=== PATIENT | male | born 1990 | race Hispanic/Latino ===

== ENCOUNTER 2019-10-04 04:06 | Emergency (ER) | payer OTHER ==
--- NOTE | 2019-10-04 04:37 | ER ---
Nurse's Notes [facility] Name: Lux Reza Age: 29 yrs Sex: Male : 1990 Arrival Date: 10/04/2019 Time: 04:07 Bed 5 Private MD: Diagnosis: Chronic pain due to trauma;Lateral epicondylitis, right elbow Presentation: 10/03 04:17 Chief complaint: Patient states: Pain in arms from elbow down to hands. Reports burning tl2 and tingling sensation. Has been going on for a couple months but not getting better, pt works in construction and uses heavy machinery. Pt is unable to sleep due to pain. Coronavirus screen: Proceed with normal triage. Patient denies a cough. Patient denies shortness of breath or difficulty breathing. Patient denies measured and/or subjective temperature greater than 100.4F prior to today's visit. Patient denies travel on a cruise ship or to a country the [facility] currently lists as an affected area. Patient denies contact with known and/or suspected case of COVID-19. Ebola Screen: No symptoms or risks identified at this time. Initial Sepsis Screen: Does the patient meet any 2 criteria? No. Patient's initial sepsis screen is negative. Does the patient have a suspected source of infection? No. Patient's initial sepsis screen is negative. Risk Assessment: Do you want to hurt yourself or someone else? Patient reports no desire to harm self or others. Onset of symptoms was July 2019. 04:17 Method Of Arrival: Ambulatory tl2 04:17 Acuity: ADRIANO 4 tl2 Triage Assessment: 04:20 General: Appears in no apparent distress. uncomfortable, Behavior is calm, cooperative, tl2 appropriate for age. Pain: Complains of pain in right elbow Pain radiates to right hand Pain currently is 10 out of 10 on a pain scale. Quality of pain is described as burning, tingling, Is episodic, chronic. Neuro: Level of Consciousness is awake, alert, obeys commands, Oriented to person, place, time, situation. Cardiovascular: Denies chest pain. Respiratory: Airway is patent Respiratory effort is even, unlabored, Respiratory pattern is regular, symmetrical. GI: No signs and/or symptoms were reported involving the gastrointestinal system. Derm: Skin is pink, warm \T\ dry. Musculoskeletal: Circulation, motion, and sensation intact. Range of motion: intact in all extremities. 04:20 Musculoskeletal:. tl2 Historical: - Allergies: 04:20 No Known Allergies; tl2 - Home Meds: 04:20 None [Active]; tl2 - PMHx: 04:20 None; tl2 - PSHx: 04:20 None; tl2 - Immunization history:: Adult Immunizations up to date, Last tetanus immunization: up to date. - Social history:: Smoking status: Patient denies any tobacco usage or history of. Screenin:22 Abuse screen: Denies threats or abuse. Nutritional screening: No deficits noted. tl2 Tuberculosis screening: No symptoms or risk factors identified. Fall Risk None identified. Vital Signs: 04:17 BP 133 / 93; Pulse 82; Resp 18; Temp 97.7(O); Pulse Ox 100% on R/A; Weight 113.4 kg; tl2 Height 5 ft. 7 in. (170.18 cm); Pain 10/10; 04:17 Body Mass Index 39.16 (113.40 kg, 170.18 cm) tl2 ED Course: 04:07 Patient arrived in ED. ds1 04:17 Melina Carter, RN is Primary Nurse. tl2 04:19 Triage completed. tl2 04:20 Arm band placed on right wrist. tl2 04:21 Joby Jones MD is Attending Physician. tw4 04:22 Patient has correct armband on for positive identification. Bed in low position. Call tl2 light in reach. Side rails up X 1. Adult w/ patient. 04:29 No provider procedures requiring assistance completed. Patient did not have IV access rv during this emergency room visit. Administered Medications: No medications were administered Outcome: 04:29 Medical screen evaluation completed per provider. Patient declined treatment. rv 04:29 Condition: unchanged 04:30 Discharge instructions given to patient. rv 04:36 Discharge ordered by . tw4 04:38 Patient left the ED. rv Signatures: Cyn Buchanan ds1 Melina Carter, BRIANA RN tl2 Joby Jones MD MD tw4 Niko Ledesma RN RN rv
--- NOTE | 2019-10-04 04:37 | EDPHYS ---
Physician Documentation [facility] Name: Lux Reza Age: 29 yrs Sex: Male : 1990 Arrival Date: 10/04/2019 Time: 04:07 Bed 5 Private MD: ED Physician Joby Jones HPI: 10/03 04:31 This 29 yrs old Male presents to ER via Ambulatory with complaints of R Arm tw4 Pain. 04:31 The patient or guardian complains of pain, that is chronic. The complaints affect the tw4 right elbow. Context: The problem was sustained at work. Onset: The symptoms/episode began/occurred 1 month(s) ago. Treatment prior to arrival includes: no previous treatment. Modifying factors: The symptoms are alleviated by remaining still, the symptoms are aggravated by lifting weight, bending arm. Associated signs and symptoms: The patient has no apparent associated signs or symptoms. The patient has not experienced similar symptoms in the past. Historical: - Allergies: 04:20 No Known Allergies; tl2 - Home Meds: 04:20 None [Active]; tl2 - PMHx: 04:20 None; tl2 - PSHx: 04:20 None; tl2 - Immunization history:: Adult Immunizations up to date, Last tetanus immunization: up to date. - Social history:: Smoking status: Patient denies any tobacco usage or history of. ROS: 04:31 Constitutional: Negative for fever, chills, and weight loss, Eyes: Negative for injury, tw4 pain, redness, and discharge, Cardiovascular: Negative for chest pain, palpitations, and edema, Respiratory: Negative for shortness of breath, cough, wheezing, and pleuritic chest pain, Abdomen/GI: Negative for abdominal pain, nausea, vomiting, diarrhea, and constipation, Skin: Negative for injury, rash, and discoloration, Neuro: Negative for headache, weakness, numbness, tingling, and seizure. 04:31 MS/extremity: Positive for pain, tenderness. Exam: 04:31 Constitutional: This is a well developed, well nourished patient who is awake, alert, tw4 and in no acute distress. Head/Face: Normocephalic, atraumatic. Neck: Trachea midline, no thyromegaly or masses palpated, and no cervical lymphadenopathy. Supple, full range of motion without nuchal rigidity, or vertebral point tenderness. No Meningismus. Chest/axilla: Normal chest wall appearance and motion. Nontender with no deformity. No lesions are appreciated. Cardiovascular: Regular rate and rhythm with a normal S1 and S2. No gallops, murmurs, or rubs. Normal PMI, no JVD. No pulse deficits. Respiratory: Lungs have equal breath sounds bilaterally, clear to auscultation and percussion. No rales, rhonchi or wheezes noted. No increased work of breathing, no retractions or nasal flaring. Abdomen/GI: Soft, non-tender, with normal bowel sounds. No distension or tympany. No guarding or rebound. No evidence of tenderness throughout. Neuro: Awake and alert, GCS 15, oriented to person, place, time, and situation. Cranial nerves II-XII grossly intact. Motor strength 5/5 in all extremities. Sensory grossly intact. Cerebellar exam normal. Normal gait. 04:31 Musculoskeletal/extremity: Extremities: noted in the right elbow: ROM: limited active range of motion, limited passive range of motion, Circulation is intact in all extremities. Vital Signs: 04:17 BP 133 / 93; Pulse 82; Resp 18; Temp 97.7(O); Pulse Ox 100% on R/A; Weight 113.4 kg; tl2 Height 5 ft. 7 in. (170.18 cm); Pain 10/10; 04:17 Body Mass Index 39.16 (113.40 kg, 170.18 cm) tl2 MDM: 04:21 Patient medically screened. 4 04:36 Data reviewed: vital signs, nurses notes. Medical screen evaluation completed. [place] [id number] emergency medical condition absent. Special discussion: I discussed with the patient/guardian in detail that at this point there is no indication for admission to the hospital. It is understood, however, that if the symptoms persist or worsen the patient needs to return immediately for re-evaluation. 04:37 ED course: Pt has had pain in right elbow for one month. States repetitive injury at 4 work. Emergent medical condition absent. Administered Medications: No medications were administered Disposition: 04:37 [facility]. [facility] Disposition: 10/04/19 04:36 Discharged to Home. Impression: Chronic pain due to trauma, Lateral epicondylitis, right elbow. - Condition is Stable. - Medication Reconciliation Form, Thank You Letter, Antibiotic Education, Prescription Opioid Use form. - Follow up: Private Physician; When: Upon discharge from the Emergency Department; Reason: Recheck today's complaints, Continuance of care, Re-evaluation by your physician. - Problem is new. - Symptoms have improved. Signatures: Melina Carter, RN RN tl2 Joby Jones MD MD tw4 Niko Ledesma RN RN rv Corrections: (The following items were deleted from the chart) 04:38 04:36 10/04/2019 04:36 Discharged to Home. Impression: Chronic pain due to trauma; rv Lateral epicondylitis, right elbow. Condition is Stable. Forms are Medication Reconciliation Form, Thank You Letter, Antibiotic Education, Prescription Opioid Use. Follow up: Private Physician; When: Upon discharge from the Emergency Department; Reason: Recheck today's complaints, Continuance of care, Re-evaluation by your physician. Problem is new. Symptoms have improved. tw4
[2019-10-04 04:43] VITALS: BP 133/93; TEMP 97.7; O2SAT 100
== END 2019-10-04 04:38 | disposition home or self-care (01) ==
LOC: ER 04:06
DX: M77.11 Lateral epicondylitis, right elbow (principal); G89.21 Chronic pain due to trauma; X58.XXXA Exposure to other specified factors, initial encounter; Y93.H3 Activity, building and construction; Y92.69 Other specified industrial and construction area as the place of occurrence of the external cause; Y99.0 Civilian activity done for income or pay
CPT/HCPCS: 99281

== ENCOUNTER 2022-02-13 17:28 | Emergency (ER) | payer SELFPAY ==
--- OUTSIDE RECORDS SUMMARY | 2022-02-13 17:32 | XMS REPORT | Continuity of Care Document ---
:1990 Author Organization [facility] t Address [address] [place] [address] Care Team Providers Name Role Phone Unavailable Unavailable Unavailable Payers Payer Name Policy Type Policy Number Effective Date Expiration Date S ource Problems This patient has no known problems. Allergies, Adverse Reactions, Alerts Allergy Allergy Status Severity Reaction(s) Onset Inactive Treating Comm ents Source Name Type Date Date Clinician No Known DA Active [facility] All[facility]ie 06-24 [facility] 00:00: e 00 [facility] Medications This patient has no known medications. Procedures This patient has no known procedures. Encounters Start End Encounter Admission Attending Care Care Encounter Source Date/Time Date/Time Type Type Clinicians Facility Department ID 2017-07-30 2017-07-30 Outpatient [facility] [id number] [address] [place] [address] 00:00:00 00:00:00 [facility] Results Test Description Test Time Test Comments Results Result Comments Source STREPTOCOCCUS PCR SCREEN 2019-02-15 05:44:00 Test Item Value Reference Range Interpretation Comme nts STREPTOCOCCUS DYSGALACTIAE (test code = STREPGC) NEGATIVE FOR G/C N EGATIVE STREPA MOLECULAR (test code = STREPAMOL) NEGATIVE FOR GRP A NEGATIV E - XR CHEST 2 [id number] 09:27:00 Name: RYANNE GROSS [facility] : 1990 Age/S:28 /M [address] [facility] Unit#:[id number] [place]: [place] [address] Phys: Molly Peters MD Dis Date: PHONE #: [phone] Status: REG ER FAX #: [phone] Exam Date: 02/14/2019 Reason: productive cough EXAMS: CPT CODE: [id number] XR CHEST 2 V [id number] HISTORY: Productive cough. COMPARISON: Noneavailable. AP and lateral view of the chest: No acute infiltrates, effusion or congestion. Cardiac and the mediastinal silhouette are normal. IMPRESSION: No acute infiltrates, effusion or congestion. at 0927 Reported and signed by: Tyler Amador M.D. CC: Molly Peters MD Technologist: JAYLYN CONCEPCION, RT(R),CT Trnscrpt Data: 02/14/2019 (926) [email or web address] Orig Print D/T: S: 02/14/2019 (0151) PAGE 1 Signed Report
[2022-02-13] MEDS ORDERED: HYDROCODONE/APAP 10/325 TAB ONE (19:11)
--- NOTE | 2022-02-13 19:50 | EDPHYS ---
Physician Documentation [facility] Name: Lux Reza Age: 31 yrs Sex: Male : 1990 Arrival Date: 02/13/2022 Time: 17:31 Bed 9 Private MD: ED Physician Drew Pitts HPI: 02/13 19:11 This 31 yrs old Male presents to ER via Ambulatory with complaints of Cough, jl9 Congestion.. 19:11 The patient or guardian reports cough, described as moderate, hoarse voice. Onset: The jl9 symptoms/episode began/occurred 1 week(s) ago. Modifying factors: The symptoms are alleviated by nothing, the symptoms are aggravated by nothing. Associated signs and symptoms: Pertinent positives: sore throat, Pertinent negatives:. Historical: - Allergies: 17:56 No Known Allergies; vg1 - Home Meds: 17:56 None [Active]; vg1 - PMHx: 17:56 None; vg1 - PSHx: 17:56 None; vg1 - Immunization history:: Client reports having NOT received the Covid vaccine. - Social history:: Smoking status: Patient denies any tobacco usage or history of. ROS: 19:11 Constitutional: Negative for fever, chills, and weight loss, Eyes: Negative for injury, jl9 pain, redness, and discharge, ENT: Negative for injury, pain, and discharge, Neck: Negative for injury, pain, and swelling, Cardiovascular: Negative for chest pain, palpitations, and edema. 19:11 Abdomen/GI: Negative for abdominal pain, nausea, vomiting, diarrhea, and constipation, Back: Negative for injury and pain, : Negative for injury, bleeding, discharge, and swelling, MS/Extremity: Negative for injury and deformity, Skin: Negative for injury, rash, and discoloration, Neuro: Negative for headache, weakness, numbness, tingling, and seizure, Psych: Negative for depression, anxiety, suicide ideation, homicidal ideation, and hallucinations, Allergy/Immunology: Negative for hives, rash, and allergies, Endocrine: Negative for neck swelling, polydipsia, polyuria, polyphagia, and marked weight changes, Hematologic/Lymphatic: Negative for swollen nodes, abnormal bleeding, and unusual bruising. 19:11 Respiratory: Positive for cough. Exam: 19:12 Constitutional: This is a well developed, well nourished patient who is awake, alert, jl9 and in no acute distress. Head/Face: Normocephalic, atraumatic. Eyes: Pupils equal round and reactive to light, extra-ocular motions intact. Lids and lashes normal. Conjunctiva and sclera are non-icteric and not injected. Cornea within normal limits. Periorbital areas with no swelling, redness, or edema. ENT: Mucous membranes moist. Neck: Trachea midline, no thyromegaly or masses palpated, and no cervical lymphadenopathy. Supple, full range of motion without nuchal rigidity, or vertebral point tenderness. No Meningismus. Chest/axilla: Normal chest wall appearance and motion. Nontender with no deformity. No lesions are appreciated. Cardiovascular: Regular rate and rhythm with a normal S1 and S2. No gallops, murmurs, or rubs. Normal PMI, no JVD. No pulse deficits. Respiratory: Lungs have equal breath sounds bilaterally, clear to auscultation and percussion. No rales, rhonchi or wheezes noted. No increased work of breathing, no retractions or nasal flaring. Abdomen/GI: Soft, non-tender, with normal bowel sounds. No distension or tympany. No guarding or rebound. No evidence of tenderness throughout. Back: No spinal tenderness. No costovertebral tenderness. Full range of motion. Skin: Warm, dry with normal turgor. Normal color with no rashes, no lesions, and no evidence of cellulitis. MS/ Extremity: Pulses equal, no cyanosis. Neurovascular intact. Full, normal range of motion. Neuro: Awake and alert, GCS 15, oriented to person, place, time, and situation. Cranial nerves II-XII grossly intact. Motor strength 5/5 in all extremities. Sensory grossly intact. Cerebellar exam normal. Normal gait. Psych: Awake, alert, with orientation to person, place and time. Behavior, mood, and affect are within normal limits. Vital Signs: 17:54 BP 130 / 82; Pulse 100; Resp 17; Temp 98.8(O); Pulse Ox 99% ; Weight 127.01 kg; Height vg1 5 ft. 6 in. (167.64 cm); Pain 7/10; 19:00 BP 132 / 80; Pulse 98; Resp 18; Pulse Ox 99% on R/A; kr3 20:05 BP 140 / 82; Pulse 88; Resp 18; Pulse Ox 100% on R/A; kr3 17:54 Body Mass Index 45.19 (127.01 kg, 167.64 cm) vg1 MDM: 18:02 Patient medically screened. jl9 19:49 Data reviewed: vital signs, nurses notes. Counseling: I had a detailed discussion with jl9 the patient and/or guardian regarding: the historical points, exam findings, and any diagnostic results supporting the discharge/admit diagnosis, lab results, the need for outpatient follow up, to return to the emergency department if symptoms worsen or persist or if there are any questions or concerns that arise at home. 02/13 17:40 Order name: Flu; Complete Time: 19:09 jl9 02/13 17:40 Order name: SARS-COV-2 RT PCR (Document "Date of Onset" if Symptomatic); Complete Time: jl9 19:46 Administered Medications: 19:15 Drug: [place] (HYDROcodone-acetaminophen) 10 mg-325 mg 1 tabs Route: PO; kr3 20:04 Follow up: Response: No adverse reaction; RASS: Alert and Calm (0) kr3 Disposition Summary: 02/13/22 19:49 Discharge Ordered Location: Home jl9 Condition: Stable jl9 Diagnosis - Acute upper respiratory infection, unspecified jl9 Followup: jl9 - With: Private Physician - When: 1 - 2 days - Reason: Recheck today's complaints, Continuance of care, Re-evaluation by your physician Discharge Instructions: - Discharge Summary Sheet jl9 - Upper Respiratory Infection, Adult jl9 Forms: - Medication Reconciliation Form jl9 - Thank You Letter jl9 - Antibiotic Education jl9 - Prescription Opioid Use jl9 - Work release form kr3 Prescriptions: - albuterol sulfate 90 mcg/actuation Inhalation HFA aerosol inhaler - inhale 2 puff by INHALATION route every 4 hours As needed; 18 gram; Refills: 0, jl9 Product Selection Permitted - azithromycin 250 mg Oral tablet - take 2 tablet by ORAL route once daily for 1 day then 1 tablet (250 mg) by oral jl9 route once daily for 4 days; 6 tablet; Refills: 0, Product Selection Permitted - Medrol (Damián) 4 mg Oral Tablets, Dose Pack - take 1 tablet by ORAL route as directed - follow package instructions; 1 jl9 packet; Refills: 0, Product Selection Permitted Addendum: 02/16/2022 07:04 Co-signature as Attending Physician, Drew Pitts MD. r n Signatures: Dispatcher [employer] EDMS Drew Pitts MD MD rn Garcia, Denia RN RN vg1 Kyle Portillo jl9 Liseth Campoverde RN RN kr3 Corrections: (The following items were deleted from the chart) 02/13 19:42 19:12 Constitutional: This is a well developed, well nourished patient who is awake, jl9 alert, and in no acute distress. Head/Face: Normocephalic, atraumatic. Eyes: Pupils equal round and reactive to light, extra-ocular motions intact. Lids and lashes normal. Conjunctiva and sclera are non-icteric and not injected. Cornea within normal limits. Periorbital areas with no swelling, redness, or edema. ENT: Mucous membranes moist. Neck: Trachea midline, no thyromegaly or masses palpated, and no cervical lymphadenopathy. Supple, full range of motion without nuchal rigidity, or vertebral point tenderness. No Meningismus. Chest/axilla: Normal chest wall appearance and motion. Nontender with no deformity. No lesions are appreciated. Cardiovascular: Regular rate and rhythm with a normal S1 and S2. No gallops, murmurs, or rubs. Normal PMI, no JVD. No pulse deficits. Respiratory: Lungs have equal breath sounds bilaterally, clear to auscultation and percussion. No rales, rhonchi or wheezes noted. No increased work of breathing, no retractions or nasal flaring. Abdomen/GI: Soft, non-tender, with normal bowel sounds. No distension or tympany. No guarding or rebound. No evidence of tenderness throughout. Back: No spinal tenderness. No costovertebral tenderness. Full range of motion. Skin: Warm, dry with normal turgor. Normal color with no rashes, no lesions, and no evidence of cellulitis. MS/ Extremity: Pulses equal, no cyanosis. Neurovascular intact. Full, normal range of motion. Neuro: Awake and alert, GCS 15, oriented to person, place, time, and situation. Cranial nerves II-XII grossly intact. Motor strength 5/5 in all extremities. Sensory grossly intact. Cerebellar exam normal. Normal gait. Psych: Awake, alert, with orientation to person, place and time. Behavior, mood, and affect are within normal limits. jl9
--- NOTE | 2022-02-13 19:50 | ER ---
Nurse's Notes [facility] Name: Lux Reza Age: 31 yrs Sex: Male : 1990 Arrival Date: 02/13/2022 Time: 17:31 Bed 9 Private MD: Diagnosis: Acute upper respiratory infection, unspecified Presentation: 02/13 17:54 Chief complaint: Patient states: cough/congestion, body aches, chills, and sore throat vg1 since Sunday. Also states nausea, denies V/D. Stated has been taking Robitussin, Vitamin C, and Theraflu. Coronavirus screen: Vaccine status: Patient reports being unvaccinated. Client denies travel out of the [place] in the last 14 days. Ebola Screen: Patient negative for fever greater than or equal to 101.5 degrees Fahrenheit, and additional compatible Ebola Virus Disease symptoms Patient denies exposure to infectious person. Initial Sepsis Screen: Does the patient meet any 2 criteria? HR > 90 bpm. Does the patient have a suspected source of infection? No. Patient's initial sepsis screen is negative. Risk Assessment: Do you want to hurt yourself or someone else? Patient reports no desire to harm self or others. Onset of symptoms was February 07, 2022. 17:54 Method Of Arrival: Ambulatory vg1 17:54 Acuity: ADRIANO 4 vg1 Triage Assessment: 17:56 General: Appears uncomfortable, Behavior is calm, cooperative. Pain: Complains of pain vg1 in generalize body Pain currently is 7 out of 10 on a pain scale. Pain began x 1 week. Respiratory: Reports cough that is Airway is patent Respiratory effort is even, unlabored. 20:05 Respiratory: Breath sounds are clear bilaterally. kr3 Historical: - Allergies: 17:56 No Known Allergies; vg1 - Home Meds: 17:56 None [Active]; vg1 - PMHx: 17:56 None; vg1 - PSHx: 17:56 None; vg1 - Immunization history:: Client reports having NOT received the Covid vaccine. - Social history:: Smoking status: Patient denies any tobacco usage or history of. Screenin:45 Abuse screen: Denies threats or abuse. Nutritional screening: No deficits noted. kr3 Tuberculosis screening: No symptoms or risk factors identified. Fall Risk None identified. Assessment: 19:00 Reassessment: No changes from previously documented assessment. Patient and/or family kr3 updated on plan of care and expected duration. Pain level reassessed. Patient is alert, oriented x 3, equal unlabored respirations, skin warm/dry/pink. Cardiovascular: Patient's skin is warm and dry. Respiratory: Airway is patent Respiratory effort is even, unlabored, Respiratory pattern is regular, symmetrical. Vital Signs: 17:54 BP 130 / 82; Pulse 100; Resp 17; Temp 98.8(O); Pulse Ox 99% ; Weight 127.01 kg; Height vg1 5 ft. 6 in. (167.64 cm); Pain 7/10; 19:00 BP 132 / 80; Pulse 98; Resp 18; Pulse Ox 99% on R/A; kr3 20:05 BP 140 / 82; Pulse 88; Resp 18; Pulse Ox 100% on R/A; kr3 17:54 Body Mass Index 45.19 (127.01 kg, 167.64 cm) vg1 ED Course: 17:31 Patient arrived in ED. rg4 17:40 Kyle Portillo is PHCP. jl9 17:40 Drew Pitts MD is Attending Physician. jl9 17:56 Triage completed. vg1 17:56 Arm band placed on. vg1 18:15 Bed in low position. Call light in reach. Side rails up X 1. kr3 18:31 Liseth Campoverde, RN is Primary Nurse. kr3 19:42 SARS-COV-2 RT PCR (Document "Date of Onset" if Symptomatic) Sent. wm 20:05 No provider procedures requiring assistance completed. Patient did not have IV access kr3 during this emergency room visit. Administered Medications: 19:15 Drug: [place] (HYDROcodone-acetaminophen) 10 mg-325 mg 1 tabs Route: PO; kr3 20:04 Follow up: Response: No adverse reaction; RASS: Alert and Calm (0) kr3 Medication: 20:06 VIS not applicable for this client. kr3 Outcome: 19:49 Discharge ordered by . jl9 20:05 Discharged to home ambulatory. kr3 20:05 Condition: stable 20:05 Discharge instructions given to patient, Instructed on discharge instructions, follow up and referral plans. medication usage, Demonstrated understanding of instructions, follow-up care, medications, Prescriptions given X 3. 20:06 Patient left the ED. kr3 Signatures: Deann Moreno rg4 Denia Moreno, RN RN vg1 Sandra Garg John jl9 Liseth Campoverde RN RN kr3
[2022-02-13 21:23] VITALS: TEMP 98.8
[2022-02-13 21:29] VITALS: BP 140/82; O2SAT 100
== END 2022-02-13 20:06 | disposition home or self-care (01) ==
LOC: ER 17:28
DX: J06.9 Acute upper respiratory infection, unspecified (principal); Z20.822 Contact with and (suspected) exposure to COVID-19
CPT/HCPCS: 87804; 99283; U0003

== ENCOUNTER 2022-02-20 21:39 | Emergency (ER) | payer SELFPAY ==
[2022-02-20] MEDS ORDERED: TETRACAINE HCL 0.5% 4ML OPTH ONE (21:54)
[2022-02-20] MEDS ORDERED: FLUORESCEIN SODIUM 1 MG/WRAP ONE (21:54)
--- OUTSIDE RECORDS SUMMARY | 2022-02-20 22:35 | XMS REPORT | Continuity of Care Document ---
:1990 Author Organization [facility] t Address [address] [place] [address] Care Team Providers Name Role Phone Unavailable Unavailable Unavailable Payers Payer Name Policy Type Policy Number Effective Date Expiration Date S ource Problems This patient has no known problems. Allergies, Adverse Reactions, Alerts Allergy Allergy Status Severity Reaction(s) Onset Inactive Treating Comm ents Source Name Type Date Date Clinician No Known DA Active U [facility] 06-24 [facility] 00:00: e [address] [facility] Medications This patient has no known medications. Procedures This patient has no known procedures. Encounters Start End Encounter Admission Attending Care Care Encounter Source Date/Time Date/Time Type Type Clinicians Facility Department ID 2017-07-30 2017-07-30 Outpatient [facility] [id number] [address] [place] [address] 00:00:00 00:00:00 [facility] Results Test Description Test Time Test Comments Results Result Comments Source STREPTOCOCCUS PCR SCREEN 2019-02-15 05:44:00 Test Item Value Reference Range Interpretation Comme nts STREPTOCOCCUS DYSGALACTIAE (test code = STREPGC) NEGATIVE FOR G/C N EGATIVE STREPA MOLECULAR (test code = STREPAMOL) NEGATIVE FOR GRP A NEGATIV E - XR CHEST 2 [id number] 09:27:00 Name: RYANNE GROSS [facility] : 1990 Age/S:28 /M [address] [facility] Unit#:[id number] [place]: [place] [address] Phys: Molly Peters MD Dis Date: PHONE #: [phone] Status: REG ER FAX #: [phone] Exam Date: 02/14/2019 Reason: productive cough EXAMS: CPT CODE: [id number] XR CHEST 2 V [id number] HISTORY: Productive cough. COMPARISON: Noneavailable. AP and lateral view of the chest: No acute infiltrates, effusion or congestion. Cardiac and the mediastinal silhouette are normal. IMPRESSION: No acute infiltrates, effusion or congestion. at 0927 Reported and signed by: Tyler Amador M.D. CC: Molly Peters MD Technologist: JAYLYN CONCEPCION, RT(R),CT Trnscrpt Data: 02/14/2019 (926) [email or web address] Orig Print D/T: S: 02/14/2019 (7077) PAGE 1 Signed Report
[2022-02-20] MEDS ORDERED: GENTAMICIN 0.3% OPTH DROP 5ML ONE (23:01)
--- NOTE | 2022-02-20 23:01 | EDPHYS ---
Physician Documentation [facility] Name: Lux Reza Age: 31 yrs Sex: Male : 1990 Arrival Date: 02/20/2022 Time: 21:44 Bed 12 Private MD: ED Physician De Malcolm HPI: 02/20 22:00 This 31 yrs old Male presents to ER via Ambulatory with complaints of Chemical cp Exposure In Eye. 22:00 The patient is experiencing blurred vision, pain, redness, The patient sustained a cp splash, to the left eye, caused by Epoxy hardner. 22:00 Onset: The symptoms/episode began/occurred today. cp 22:00 Associated signs and symptoms: Pertinent negatives: dizziness, ear ache, fever, cp headache. Patient does not utilize any form of vision correction. Severity of symptoms: in the emergency department the symptoms have improved mildly. Patient reports he using Epoxy hardener at work today when chemical splashed into left eye. Patient immediately irrigated eye prior to coming to ED. Historical: - Allergies: 21:58 No Known Allergies; kb3 - Home Meds: 21:58 None [Active]; kb3 - PMHx: 21:58 None; kb3 - PSHx: 21:58 None; kb3 - Immunization history:: Adult Immunizations up to date, Client reports having NOT received the Covid vaccine. Last tetanus immunization: up to date. - Social history:: Smoking status: Patient denies any tobacco usage or history of. ROS: 22:05 Eyes: Positive for blurry vision, pain, redness, of the left eye, Negative for cp discharge. 22:05 ENT: Negative for drainage from ear(s), ear pain, sore throat, difficulty swallowing, cp difficulty handling secretions. 22:05 Cardiovascular: Negative for chest pain, palpitations. 22:05 Respiratory: Negative for cough, shortness of breath, wheezing. 22:05 Abdomen/GI: Negative for abdominal pain, nausea, vomiting, and diarrhea. 22:05 Skin: Negative for cellulitis, rash. 22:05 Neuro: Negative for altered mental status, headache, weakness. 22:05 All other systems are negative. Exam: 22:10 Constitutional: The patient appears in no acute distress, alert, awake, non-toxic, well cp developed, well nourished. 22:10 Head/Face: Normocephalic, atraumatic. cp 22:10 Eyes: Periorbital structures: appear normal, Pupils: equal, round, and reactive to light and accomodation, Extraocular movements: intact throughout, Conjunctiva: injected, in the left eye, Corneas: abrasion, is not appreciated, foreign body, is not appreciated, a fluorescein strip employed to appreciate the findings, Sclera: no appreciated abnormality, Lids and lashes: appear normal, on the left, Examination of the other eye reveals no obvious gross abnormality. 22:10 ENT: External ear(s): are unremarkable, Ear canal(s): are normal, clear, TM's: dullness, bilaterally. 22:10 Neck: ROM/movement: is normal, is supple, without pain, no range of motions limitations. 22:10 Chest/axilla: Inspection: normal. 22:10 Cardiovascular: Rate: normal. 22:10 Respiratory: the patient does not display signs of respiratory distress, Respirations: normal, no use of accessory muscles, no retractions, labored breathing, is not present. Vital Signs: 21:56 BP 130 / 74; Pulse 99; Resp 20; Temp 98; Pulse Ox 100% ; Weight 127.01 kg; Height 5 ft. kb3 6 in. (167.64 cm); Pain 7/10; 23:07 BP 128 / 77; Pulse 89; Resp 20; Pulse Ox 100% on R/A; kr3 21:56 Body Mass Index 45.19 (127.01 kg, 167.64 cm) kb3 Visual Acuity: 22:00 Left Eye Visual acuity 20/40, Pupil size 3 mm, ; Right Eye Visual acuity 20/50, Pupil kr3 size 3 mm, ; Both Eyes Visual acuity 20/30; Without Lenses; MDM: 21:48 Patient medically screened. cp 22:00 Differential diagnosis: Corneal abrasion of left eye. Foreign body in left eye. cp Chemical conjunctivitis in left eye. Infectious conjunctivitis in left eye. 23:00 Data reviewed: vital signs, nurses notes. cp 23:00 Counseling: I had a detailed discussion with the patient and/or guardian regarding: the cp historical points, exam findings, and any diagnostic results supporting the discharge/admit diagnosis, the need for outpatient follow up, an opthalmologist, to return to the emergency department if symptoms worsen or persist or if there are any questions or concerns that arise at home. Response to treatment: the patient's symptoms have markedly improved after treatment, and as a result, I will discharge patient. 02/20 21:54 Order name: Eye Tray; Complete Time: 21:56 cp 02/20 21:54 Order name: Fluoresene Opth strip; Complete Time: 21:56 cp 02/20 21:54 Order name: Visual Acuity; Complete Time: 22:00 cp Administered Medications: 22:45 Drug: Tetracaine Drops 0.5 % 1 drops Route: Ophthalmic; Site: left eye; kr3 23:04 Drug: Gentamicin Drops 0.3 % 1 drops Route: Ophthalmic; Site: left eye; kr3 Disposition Summary: 02/20/22 23:00 Discharge Ordered Location: Home cp Problem: new cp Symptoms: have improved cp Condition: Stable cp Diagnosis - Unspecified acute conjunctivitis, left eye cp Followup: cp - With: Isaías Freeman MD - When: 1 - 2 days - Reason: Recheck today's complaints Discharge Instructions: - Discharge Summary Sheet cp - How to Use Eye Drops and Eye Ointments cp - Chemical Burn of the Eyes, Adult cp Forms: - Medication Reconciliation Form cp - Thank You Letter cp - Antibiotic Education cp - Prescription Opioid Use cp Prescriptions: - Gentamicin 0.3 % Ophthalmic Drops - instill 1 drop by OPHTHALMIC route every 4 hours for 7 days; 1 bottle; Refills: cp 0, Product Selection Permitted Signatures: De Lewis PA PA cp Liseth Campoverde RN RN kr3 Dee Dee Nolan RN RN kb3 Corrections: (The following items were deleted from the chart) 02/21 21:37 02/20 22:00 The patient is experiencing blurred vision, pain, redness, The patient cp sustained a splash, to the left eye, caused by cp
--- NOTE | 2022-02-20 23:01 | ER ---
Nurse's Notes [facility] Name: Lux Reza Age: 31 yrs Sex: Male : 1990 Arrival Date: 02/20/2022 Time: 21:44 Bed 12 Private MD: Diagnosis: Unspecified acute conjunctivitis, left eye Presentation: 02/20 21:56 Chief complaint: Patient states: Pt reports he accidentally was splashed in the left kb3 eye with Epoxy hardener today while at work today at 1300. Pt immediately flushed eye for 20 minutes. Reports irritation, burning, excessive tearing and yellow discharge from left eye. Coronavirus screen: Vaccine status: Patient reports being unvaccinated. Client denies travel out of the [place] in the last 14 days. Ebola Screen: Patient negative for fever greater than or equal to 101.5 degrees Fahrenheit, and additional compatible Ebola Virus Disease symptoms Patient denies exposure to infectious person. Patient denies travel to an Ebola-affected area in the 21 days before illness onset. Initial Sepsis Screen: Does the patient meet any 2 criteria? No. Patient's initial sepsis screen is negative. Does the patient have a suspected source of infection? No. Patient's initial sepsis screen is negative. Risk Assessment: Do you want to hurt yourself or someone else? Patient reports no desire to harm self or others. Onset of symptoms was February 20, 2022 at 13:00. 21:56 Method Of Arrival: Ambulatory kb3 21:56 Acuity: ADRIANO 3 kb3 Triage Assessment: 21:58 General: Appears in no apparent distress. Behavior is calm, cooperative. Pain: kb3 Complains of pain in left eye Pain does not radiate. Pain currently is 8 out of 10 on a pain scale. Quality of pain is described as burning, Pain began 1300 today Is continuous. EENT: Eyes are tearing on outer aspect of conjuctiva of left eye, iris of left eye and inner aspect of conjunctiva of left eye with exudate noted from inner aspect of conjunctiva of left eye Sclera/Cornea are clear in outer aspect of conjuctiva of left eye, iris of left eye and inner aspect of conjunctiva of left eye are reddened in outer aspect of conjuctiva of left eye, iris of left eye and inner aspect of conjunctiva of left eye. Historical: - Allergies: 21:58 No Known Allergies; kb3 - Home Meds: 21:58 None [Active]; kb3 - PMHx: 21:58 None; kb3 - PSHx: 21:58 None; kb3 - Immunization history:: Adult Immunizations up to date, Client reports having NOT received the Covid vaccine. Last tetanus immunization: up to date. - Social history:: Smoking status: Patient denies any tobacco usage or history of. Screenin:08 Abuse screen: Denies threats or abuse. Nutritional screening: No deficits noted. kr3 Tuberculosis screening: No symptoms or risk factors identified. Fall Risk None identified. Assessment: 22:07 General: Appears in no apparent distress. uncomfortable, Behavior is calm, cooperative, kr3 appropriate for age. Cardiovascular: No deficits noted. Respiratory: No deficits noted. GI: No deficits noted. EENT: Eyes are tearing on outer aspect of conjuctiva of left eye and inner aspect of conjunctiva of left eye with redness. 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 . 22:30 Reassessment: No changes from previously documented assessment. Patient and/or family kr3 updated on plan of care and expected duration. Pain level reassessed. Patient is alert, oriented x 3, equal unlabored respirations, skin warm/dry/pink. Vital Signs: 21:56 BP 130 / 74; Pulse 99; Resp 20; Temp 98; Pulse Ox 100% ; Weight 127.01 kg; Height 5 ft. kb3 6 in. (167.64 cm); Pain 7/10; 23:07 BP 128 / 77; Pulse 89; Resp 20; Pulse Ox 100% on R/A; kr3 21:56 Body Mass Index 45.19 (127.01 kg, 167.64 cm) kb3 Visual Acuity: 22:00 Left Eye Visual acuity 20/40, Pupil size 3 mm, ; Right Eye Visual acuity 20/50, Pupil kr3 size 3 mm, ; Both Eyes Visual acuity 20/30; Without Lenses; ED Course: 21:44 Patient arrived in ED. ja2 21:47 De Lewis PA is PHCP. cp 21:47 De Malcolm MD is Attending Physician. cp 21:49 Gilles, Liseth, RN is Primary Nurse. kr3 21:58 Triage completed. kb3 21:58 Arm band placed on left wrist. Patient placed in an exam room, on a stretcher. kb3 22:00 Bed in low position. Call light in reach. Side rails up X 1. kr3 22:59 Isaías Freeman MD is Referral Physician. cp 23:08 No provider procedures requiring assistance completed. Patient did not have IV access kr3 during this emergency room visit. Administered Medications: 22:45 Drug: Tetracaine Drops 0.5 % 1 drops Route: Ophthalmic; Site: left eye; kr3 23:04 Drug: Gentamicin Drops 0.3 % 1 drops Route: Ophthalmic; Site: left eye; kr3 Medication: 23:09 VIS not applicable for this client. kr3 Outcome: 23:00 Discharge ordered by . cp 23:08 Discharged to home ambulatory. kr3 23:08 Condition: stable 23:08 Discharge instructions given to patient, Instructed on discharge instructions, follow up and referral plans. medication usage, Demonstrated understanding of instructions, follow-up care, medications, Prescriptions given X 1. 23:09 Patient left the ED. kr3 Signatures: De Lewis PA PA cp Rosetta Eugene Kelley, RN RN kr3 Dee Dee Nolan RN RN kb3
[2022-02-20 23:49] VITALS: TEMP 98; O2SAT 100
[2022-02-20 23:50] VITALS: BP 128/77
== END 2022-02-20 23:09 | disposition home or self-care (01) ==
LOC: ER 21:39
DX: H10.32 Unspecified acute conjunctivitis, left eye (principal)
CPT/HCPCS: 99283